=== PATIENT | male | born 1985 | race African-American/Black ===

== ENCOUNTER 2019-12-20 16:00 | Inpatient (IN) | payer OTHER ==
[~2019-12-20] VITALS: Ht 182.9 cm; Wt 95.3 kg
[2019-12-20 16:09] VITALS: Ht 182.9 cm; Wt 95.3 kg
[2019-12-20 17:01] LABS: BASOPHIL % 0.2 % (0-2); PLATELET COUNT 296 x10^3mcL (130-400); RED CELL DISTRIBUTION WIDTH 13.2 % (11.5-14.5)
[2019-12-20 17:13] LABS: CALCIUM 9.2 mg/dL (8.5-10.1); CARBON DIOXIDE 20.9 mmol/L (21-32); CREATININE SERUM 2.3 mg/dL (0.7-1.3); POTASSIUM SERUM 4.5 mmol/L (3.5-5.1)
[2019-12-20 17:18] LABS: BILIRUBIN TOTAL 0.7 mg/dL (0.20-1.00); TOTAL PROTEIN, SERUM 7.4 g/dL (6.4-8.2)
[2019-12-20 20:24] LABS: MAGNESIUM 2.5 mg/dL (1.8-2.4)
[2019-12-20 20:39] LABS: PHOSPHOROUS 0.8 mg/dL (2.5-4.9)
[2019-12-20 22:05] VITALS: BP 111/66
[2019-12-21 05:20] VITALS: BP 113/68
[2019-12-21 06:54] LABS: BASOPHIL % 0.3 % (0-2); PLATELET COUNT 264 x10^3mcL (130-400); RED CELL DISTRIBUTION WIDTH 13.5 % (11.5-14.5)
[2019-12-21 07:22] LABS: CALCIUM 8.2 mg/dL (8.5-10.1); CARBON DIOXIDE 24.8 mmol/L (21-32); CHLORIDE SERUM 109 mmol/L (98-107); CREATININE SERUM 1.4 mg/dL (0.7-1.3); GFR1 > 60 mL/min; GLUCOSE SERUM 86 mg/dL (74-106); MAGNESIUM 2.3 mg/dL (1.8-2.4); PHOSPHOROUS 2.2 mg/dL (2.5-4.9); POTASSIUM SERUM 3.5 mmol/L (3.5-5.1); SODIUM SERUM 141 mmol/L (136-145)
[2019-12-21 08:57] VITALS: BP 126/79
[2019-12-21 12:30] VITALS: BP 140/82
[2019-12-21 18:06] VITALS: BP 130/78
[2019-12-21 20:57] VITALS: BP 132/74
[2019-12-22 05:39] VITALS: BP 113/59
[2019-12-22 06:42] LABS: BASOPHIL % 0.4 % (0-2); PLATELET COUNT 277 x10^3mcL (130-400); RED CELL DISTRIBUTION WIDTH 13.3 % (11.5-14.5)
[2019-12-22 07:41] LABS: CALCIUM 8.2 mg/dL (8.5-10.1); CARBON DIOXIDE 25.4 mmol/L (21-32); CHLORIDE SERUM 109 mmol/L (98-107); GFR1 > 60 mL/min; GLUCOSE SERUM 96 mg/dL (74-106); MAGNESIUM 1.9 mg/dL (1.8-2.4); PHOSPHOROUS 2.4 mg/dL (2.5-4.9); POTASSIUM SERUM 3.6 mmol/L (3.5-5.1); SODIUM SERUM 142 mmol/L (136-145)
[2019-12-22 08:29] VITALS: BP 126/82
[2019-12-22 11:24] VITALS: BP 127/87
[2019-12-22 17:00] VITALS: BP 145/92
[2019-12-22 21:06] VITALS: BP 110/71
[2019-12-23 05:22] VITALS: BP 110/57
[2019-12-23 07:27] LABS: CALCIUM 8.1 mg/dL (8.5-10.1); CARBON DIOXIDE 26.6 mmol/L (21-32); CHLORIDE SERUM 108 mmol/L (98-107); GFR1 > 60 mL/min; GLUCOSE SERUM 89 mg/dL (74-106); POTASSIUM SERUM 3.7 mmol/L (3.5-5.1); SODIUM SERUM 141 mmol/L (136-145)
[2019-12-23 07:51] VITALS: BP 130/73
[2019-12-23 08:01] LABS: BASOPHIL % 0.4 % (0-2); PLATELET COUNT 234 x10^3mcL (130-400); RED CELL DISTRIBUTION WIDTH 13.2 % (11.5-14.5)
[2019-12-23 16:01] VITALS: BP 132/80
[2019-12-23 19:53] VITALS: BP 110/60
[2019-12-24 05:13] VITALS: BP 115/70
[2019-12-24 07:36] LABS: CALCIUM 8.5 mg/dL (8.5-10.1); CHLORIDE SERUM 106 mmol/L (98-107); CREATININE SERUM 1.1 mg/dL (0.7-1.3); GFR1 > 60 mL/min; GLUCOSE SERUM 80 mg/dL (74-106); MAGNESIUM 1.8 mg/dL (1.8-2.4); POTASSIUM SERUM 3.6 mmol/L (3.5-5.1); SODIUM SERUM 140 mmol/L (136-145)
[2019-12-24 08:08] VITALS: BP 117/68
[2019-12-24 08:45] LABS: BASOPHIL % 0 % (0-2); PLATELET COUNT 262 x10^3mcL (130-400)
[2019-12-24 12:08] VITALS: BP 101/63
[2019-12-24 16:08] VITALS: BP 134/75
[2019-12-24 20:21] VITALS: BP 130/86
[2019-12-25 05:58] VITALS: BP 118/75
[2019-12-25 06:59] LABS: BASOPHIL % 0.3 % (0-2); PLATELET COUNT 270 x10^3mcL (130-400); RED CELL DISTRIBUTION WIDTH 13.1 % (11.5-14.5)
[2019-12-25 07:39] LABS: CALCIUM 8.8 mg/dL (8.5-10.1); CHLORIDE SERUM 107 mmol/L (98-107); GFR1 > 60 mL/min; GLUCOSE SERUM 82 mg/dL (74-106); MAGNESIUM 1.9 mg/dL (1.8-2.4); POTASSIUM SERUM 3.7 mmol/L (3.5-5.1); SODIUM SERUM 141 mmol/L (136-145)
[2019-12-25 08:11] VITALS: BP 124/75
[2019-12-25 11:14] VITALS: BP 124/75
== END 2019-12-25 11:55 | disposition home or self-care (01) | DRG 280 ==
LOC: ED 16:00 → DU 19:35
PROVIDERS: Emergency Medicine; ADMIT Internal Medicine; ATTEND Internal Medicine
DX: I21.A1 Myocardial infarction type 2 (principal); N17.0 Acute kidney failure with tubular necrosis; M62.82 Rhabdomyolysis; E83.39 Other disorders of phosphorus metabolism; E83.41 Hypermagnesemia; T73.3XXA Exhaustion due to excessive exertion, initial encounter; X58.XXXA Exposure to other specified factors, initial encounter; E87.8 Other disorders of electrolyte and fluid balance, not elsewhere classified; Z79.899 Other long term (current) drug therapy
CPT/HCPCS: 83880; A9500; G0378; J1885; J2785; J3490; J7030